=== PATIENT | female | born 1965 | race African-American/Black ===

== ENCOUNTER 2016-06-29 17:51 | Emergency (ER) | payer MEDICAID ==
[~2016-06-29] VITALS: Ht 154.9 cm; Wt 148.0 kg
[2016-06-29] MEDS ORDERED: SODIUM CHLORIDE 0.9% 1,000 ML IV ONE (19:52)
[2016-06-29] MEDS ORDERED: VALPROIC ACID 250MG CAPSULE PO ONE (20:15)
[2016-06-29 20:19] LABS: BASOPHILS % 0.4 % (0.0-2.0); HEMATOCRIT. 40.2 % (36.0-48.0); HEMOGLOBIN. 13.1 g/dL (12.0-16.0); INR 1.1; LYMPHOCYTES % 58.6 % (20.0-50.0); MEAN CORPUSCULAR HEMOGLOBIN 28.2 pg (28.0-32.0); MEAN CORPUSCULAR HGB CONC 32.7 g/dL (31.0-37.0); MEAN CORPUSCULAR VOLUME 86.2 fL (81.0-99.0); MEAN PLATELET VOLUME 10.4 fl (7.4-10.4); MONOCYTES % 9.1 % (2.0-8.0); NEUTROPHILS % 29.9 % (40.0-76.0); PLATELET 125 x1000/uL (130-400); PROTHROMBIN TIME 10.9 sec; RED BLOOD CELL COUNT 4.66 mill/uL (4.2-5.4); RED CELL DISTRIBUTION WIDTH 15.9 % (11.6-14.6); WHITE BLOOD COUNT 6.2 x1000/uL (4.5-11.0)
[2016-06-29 20:26] LABS: ALBUMIN 3.6 g/dL (3.4-5.0); ANION GAP 9; CALCIUM 8.8 mg/dL (8.5-10.1); CARBON DIOXIDE 30 mEq/L (21-32); CHLORIDE 107 mEq/L (98-107); ETHANOL BLOOD < 10 mg/dL; INDEX HEMOLYSI 1 (1-3); INDEX ICTERIC 1 (1-4); INDEX LIPEMIC 1 (1-3); UREA NITROGEN BLOOD 18 mg/dL (7-21)
[2016-06-29 20:27] LABS: ALANINE AMINOTRANSFERASE 31 IU/L (13-61); eGFR > 60 mL/min (>60)
[2016-06-29] MEDS ORDERED: VALPROIC ACID 250MG CAPSULE PO NR (20:30)
[2016-06-29 20:51] LABS: CREATINE KINASE 165 IU/L (26-192); TROPONIN I < 0.02 ng/mL (0.00-0.04)
[2016-06-29 20:52] LABS: PHENOBARBITAL 2.2 ug/mL (15.0-40.0); PHENYTOIN < 0.4 ug/mL (10-20)
[2016-06-29 20:53] LABS: CARBAMAZEPINE < 0.5 ug/mL (4-12); VALPROIC ACID 70.1 ug/mL (50-100)
[2016-06-29] MEDS ORDERED: TOPIRAMATE 25MG TABLET PO SCH ×2 (21:00)
[2016-06-29 22:11] LABS: CLARITY URINE CLEAR (CLEAR); COLOR URINE YELLOW (YELLOW); GLUCOSE URINE NEGATIVE (NEGATIVE); KETONES URINE NEGATIVE (NEGATIVE); LEUKOCYTE ESTERASE URINE NEGATIVE (NEGATIVE); NITRITE URINE NEGATIVE (NEGATIVE); OCCULT BLOOD URINE NEGATIVE (NEGATIVE); PROTEIN URINE NEGATIVE (NEGATIVE); SPECIFIC GRAVITY URINE 1.011 (1.005-1.030); UROBILINOGEN URINE 0.2 E.U./dL (0.2-1.0)
[2016-06-29 22:49] LABS: *AMPHETAMINES SCREEN URINE NEGATIVE (NEGATIVE); *BARBITURATES SCREEN URINE NEGATIVE (NEGATIVE); *BENZODIAZEPINES SCREEN URINE NEGATIVE (NEGATIVE); *COCAINE SCREEN URINE NEGATIVE (NEGATIVE); CANNABINOID URINE SCREEN NEGATIVE (NEGATIVE); ECSTASY MDMA SCREEN URINE NEGATIVE (NEGATIVE); METHADONE URINE SCREEN NEGATIVE (NEGATIVE); OPIATES URINE SCREEN NEGATIVE (NEGATIVE); PHENCYCLIDINE URINE SCREEN NEGATIVE (NEGATIVE)
[2016-06-30 01:30] VITALS: BP 118/75
== END 2016-06-30 01:30 | disposition home or self-care (01) ==
LOC: ER 20:49
DX: R56.9 Unspecified convulsions (principal); Z88.0 Allergy status to penicillin; Z88.6 Allergy status to analgesic agent; Z88.1 Allergy status to other antibiotic agents; K21.9 Gastro-esophageal reflux disease without esophagitis; J45.909 Unspecified asthma, uncomplicated; I10 Essential (primary) hypertension; H40.9 Unspecified glaucoma
CPT/HCPCS: 36415; 80053; 80156; 80165; 80184; 80185; 80305; 81003; 82550; 84443; 84484; 85025; 85610; 93005; 99285; G0482; J7030; Z7610